=== PATIENT | female | born 1965 | race Two or more races ===

== ENCOUNTER 2023-04-29 15:25 | Emergency (ER) | payer MEDICAID ==
[~2023-04-29] VITALS: Ht 167.6 cm; Wt 81.7 kg
[~2023-04-29 15:25] MED LIST: TIOTCAP IN
[2023-04-29 15:47] VITALS: BP 147/75
[2023-04-29] MEDS ORDERED: DexAMETHasone SOD PHOS 10MG/1ML VIAL INJ IM ONE (17:15)
[2023-04-29] MEDS ORDERED: FUROSEMIDE 40 MG/4 ML VIAL IV ONE (18:00)
[2023-04-29 18:32] LABS: Basophils # (auto) 0 10 ^3/uL (0-0.2); Basophils % (auto) 0.5 % (0.0-2.0); Eosinophils # (auto) 0.1 10 ^3/uL (0-0.8); Eosinophils % (auto) 1.9 % (0.0-7.0); Hematocrit 45.6 % (36.0-46.0); Hemoglobin 15.4 g/dL (12.2-16.2); Lymphocytes # (auto) 1.7 10 ^3/uL (0.4-5.4); Lymphocytes % (auto) 32.6 % (10.0-50.0); Mean Corpuscular Hgb Conc. 33.7 g/dL (32.0-36.0); Mean Corpuscular Volume 98.2 fL (80.0-100.0); Monocytes # (auto) 0.5 10 ^3/uL (0-1.3); Monocytes % (auto) 9.2 % (0.0-12.0); Neutrophils % (auto) 55.8 % (37.0-80.0); Nucleated Red Blood Cells % 0.2 %; Red Blood Cells 4.65 10^6/uL (4.0-5.20); Red Cell Distribution Width 14.3 % (11.8-14.3); White Blood Cell 5.3 10^3/uL (4.4-10.8)
[2023-04-29 19:00] LABS: Albumin 3.6 g/dL (3.4-5.0); Calcium 9.5 mg/dL (8.5-10.1)
[2023-04-29 19:04] LABS: BUN/Creatinine Ratio 30.4 (10.0-20.0); Bilirubin, Total 0.4 mg/dL (0.2-1.0); Total Protein 7.1 g/dL (6.4-8.2)
[2023-04-29] MEDS ORDERED: AZIT-81 PO (19:22)
== END 2023-04-29 19:34 | disposition home or self-care (01) ==
LOC: ER 15:25
DX: J06.9 Acute upper respiratory infection, unspecified (principal); R05.9 Cough, unspecified; J44.9 Chronic obstructive pulmonary disease, unspecified; F17.210 Nicotine dependence, cigarettes, uncomplicated; R06.02 Shortness of breath; Z88.0 Allergy status to penicillin; Z91.02 Food additives allergy status
CPT/HCPCS: 36415; 71045; 80053; 83880; 84484; 85025; 96372; 96374; 99284; J1100; J1940

== ENCOUNTER 2023-06-21 13:55 | Emergency (ER) | payer MEDICAID ==
[~2023-06-21] VITALS: Ht 170.2 cm; Wt 76.8 kg
[~2023-06-21 13:55] MED LIST changes: +AZIT-81 PO
[2023-06-21 15:13] VITALS: BP 126/77; PULSE 103; RESP 18; TEMP 97.8; O2SAT 99
[2023-06-21] MEDS ORDERED: IBUP-1456 PO (16:10)
== END 2023-06-21 16:19 | disposition home or self-care (01) ==
LOC: ER 13:55
DX: S63.614A Unspecified sprain of right ring finger, initial encounter (principal); M79.5 Residual foreign body in soft tissue; J44.9 Chronic obstructive pulmonary disease, unspecified; F17.210 Nicotine dependence, cigarettes, uncomplicated; Z79.1 Long term (current) use of non-steroidal anti-inflammatories (NSAID); Z79.2 Long term (current) use of antibiotics; Z79.899 Other long term (current) drug therapy; Z88.0 Allergy status to penicillin; Z91.018 Allergy to other foods; X50.1XXA Overexertion from prolonged static or awkward postures, initial encounter; Y93.89 Activity, other specified; Y92.89 Other specified places as the place of occurrence of the external cause; Y99.8 Other external cause status
CPT/HCPCS: 29130; 73130

== ENCOUNTER 2023-07-16 12:56 | Emergency (ER) | payer MEDICAID ==
[~2023-07-16] VITALS: Ht 167.6 cm; Wt 78.2 kg
[~2023-07-16 12:56] MED LIST changes: +IBUP-1456 PO
[2023-07-16] MEDS ORDERED: OMEP-335 PO (15:35)
[2023-07-16 15:41] VITALS: BP 120/76; PULSE 102; RESP 18; TEMP 98.2; O2SAT 99
== END 2023-07-16 15:35 | disposition home or self-care (01) ==
LOC: ER 12:56
DX: R10.13 Epigastric pain (principal); J44.9 Chronic obstructive pulmonary disease, unspecified; F17.210 Nicotine dependence, cigarettes, uncomplicated; Z88.0 Allergy status to penicillin; Z91.018 Allergy to other foods; Z79.899 Other long term (current) drug therapy; Z79.1 Long term (current) use of non-steroidal anti-inflammatories (NSAID)

== ENCOUNTER 2024-09-10 16:09 | Emergency (ER) | payer MEDICAID, MEDICARE ==
[~2024-09-10] VITALS: Ht 167.6 cm; Wt 76.3 kg
[~2024-09-10 16:09] MED LIST changes: +AZIT-185 PO; -AZIT-81 PO; +OMEP-335 PO
[2024-09-10 16:24] VITALS: BP 167/99; PULSE 115; RESP 16; O2SAT 98
[2024-09-10] MEDS: KETOROLAC TROMETH 60MG/2ML VIAL IM ONE (16:43)
--- NOTE | 2024-09-10 16:52 | DVH ---
CLINICAL INDICATION: Fall/trauma TECHNIQUE: XY L HAND 3V XRAY Comparison: XY R HAND 3 VIEW XRAY on DOS: 06/21/23 FINDINGS/IMPRESSION: : There is no evidence of acute fracture or dislocation. Soft tissues are unremarkable.
--- NOTE | 2024-09-10 16:57 | DVH ---
CLINICAL INDICATION: Fall/trauma TECHNIQUE: 3 radiographic views of the left wrist were obtained. Comparison: XY R HAND 3 VIEW XRAY on DOS: 06/21/23 FINDINGS/IMPRESSION: There is no evidence of acute fracture or dislocation. The visualized joint space is well maintained. The alignment is anatomical. There is no radiopaque foreign body.
[2024-09-10] MEDS ORDERED: IBUP-1455 PO (17:12)
--- NOTE | 2024-09-10 17:12 | ED.PDOC ---
Musculoskeletal HPI Comments This patient is a pleasant but obese 59-year-old female who arrives to the ED for evaluation of left hand and wrist pain status post ground level fall approximately 1/2 hour prior to arrival. Patient states she had a mechanical trip and fall and landed on her left hand and wrist. Patient denies any head trauma. No blood loss. Vital signs were stable at arrival. Chief Complaint: Upper Extremity Time Seen by MD: 16:15 Primary Care Provider: Michele Reviewed Notes: Nurses Notes Allergies: Coded Allergies: Penicillins (Verified Allergy, Unknown, 11/07/22) [place] (Verified Allergy, Unknown, 04/29/23) Home Meds Active Scripts Ibuprofen Micronized (Ibuprofen) 800 Mg Tab, 800 MG PO Q8HP PRN, #20 TAB Prov:PRERNA HOFFMAN PAC 09/10/24 Omeprazole (Omeprazole) 20 Mg Tab, 20 MG PO BID for 30 Days, #60 TAB 0 Refills Prov:MARLON MYRICK UNIFORM ATTENDANT 07/16/23 Ibuprofen (Ibuprofen) 800 Mg Tab, 1 TAB PO TID, #30 TAB Prov:DANICA OCHOA 06/21/23 Azithromycin (ZITHROMAX TABLET) 250 Mg Tb, 250 MG PO DAILY for 5 Days, #6 TAB 0 Refills Prov:MARLON MYRICK UNIFORM ATTENDANT 04/29/23 Tiotropium [place] Monohydrate (Spiriva Handihaler) 18 Mcg Cap, 18 MCG IN DAILY, #1 CAP Prov:PRERNA HOFFMAN PAC 11/07/22 Information Source: Patient Mode of Arrival: Ambulatory Location: Left Extremity Location: Hand, Wrist Timing: Minutes Prehospital treatment: None Severity: Moderate Able to Move Extremity: No Bear Weight: Fully Pain: Moderate Hand Dominance: Right Mechanism: FOOSH Circumstances: Fall Onset of Symptoms: After Trauma Symptoms: Swelling, Pain DVT Risk Factors: NONE Past Medical History PAST MEDICAL HISTORY: COPD Surgical History: Denies all surgeries PLAYGROUND WORKER History: No Pertinent PLAYGROUND WORKER History Family History Family History: Reviewed,noncontributory to illness, No family hx of Cancer, No family hx of DM, No family hx of Heart arnoldo, No family hx of HTN, No family hx ofKidney arnoldo, No family hx of Liver arnoldo, No family hx of Lung arnoldo, No family hx of Stroke Social History Smoker: Cigarettes Alcohol: Denies ETOH Use Drugs: Denies Drug Use Lives In: Home Constitutional: denies: chills, diaphoresis, fatigue, fever, malaise, sweats, weakness, others EENTM: denies: blurred vision, double vision, ear bleeding, ear discharge, ear drainage, ear pain, ear ringing, eye pain, eye redness, hearing loss, mouth pain, mouth swelling, nasal discharge, nose bleeding, nose congestion, nose pain, photophobia, tearing, throat pain, throat swelling, voice changes, others Respiratory: denies: cough, hemoptysis, orthopnea, SOB at rest, shortness of breath, SOB with excertion, stridor, wheezing, others Cardiovascular: denies: chest pain, dizzy spells, diaphoresis, Dyspnea on e xertion, edema, irregular heart beat, left arm pain, lightheadedness, palpitations, PND, syncope, others Gastrointestinal: denies: abdomen distended, abdominal pain, blood streaked bowels, constipated, diarrhea, dysphagia, difficulty swallowing, hematemesis, melena, nausea, poor appetite, poor fluid intake, rectal bleeding, rectal pain, vomiting, others Genitourinary: denies: abnormal vagina bleeding, burning, dyspareunia, dysuria, flank pain, frequency, hematuria, incontinence, pain, , vagina discharge, urgency, others Neurological: denies: dizziness, fainting, headache, left sided numbness, left sided weakness, numbness, paresthesia, pre-existing deficit, right sided numbness, right sided weakness, seizure, speech problems, tingling, tremors, weakness, others Musculoskeletal: reports: others (Left wrist and left hand pain.); denies: back pain, gout, joint pain, joint swelling, muscle pain, muscle stiffness, neck pain Integumetry: denies: bruises, change in color, change in hair/nails, dryness, laceration, lesions, lumps, rash, wounds, others Allergic/Immunocompromised: denies: Difficulty Healing, Frequent Infections, Hives, Itching, others Hematologic/Lymphatic: denies: anemia, blood clots, easy bleeding, easy bruising, swollen glands, others Endocrine: denies: excessive hunger, excessive sweating, excessive thirst, excessive urination, flushing, intolerance to cold, intolerance to heat, unexplained weight gain, unexplained weight loss, others Psychiatric: denies: anxiety, bipolar disorder, depression, hopeless, panic disorder, schizophrenia, sleepless, suicidal, others Physical Exam General Appearance: Moderate Distress (Due to left hand and wrist pain), Obese HEENT: Normal ENT Inspection, Pharynx Normal, TMs Normal Neck: Full Range of Motion, Non-Tender, Normal, Normal Inspection Respiratory: Chest Non-Tender, Lungs Clear, No Accessory Muscle Use, No Respiratory Distress, Normal Breath Sounds Cardiovascular: No Edema, No JVD, No Murmur, No Gallop, Normal Peripheral Pulses, Regular Rate/Rhythm Breast Exam: Deferred Gastrointestinal: No Organomegaly, Non Tender, No Pulsatile Mass, Normal Bowel Sounds, Soft Genitalia: Deferred Pelvic: Deferred Rectal: Deferred Extremities: Other (Diffuse left wrist and left hand pain throughout. No definitive signs of trauma. Possible mild edema. No ecchymosis or erythema. Significant reduced range of motion. Distal neurovascularly intact.) Neurologic: Alert, technical support consultant II-XII nml as Tested, No Motor Deficits, Normal Affect, Normal Mood, No Sensory Deficits Cerebellar Function: Normal Reflexes: Normal Skin: Dry, Normal Color, Warm Lymphatic: No Adenopathy Was a procedure done? Was a procedure done?: No Differential Diagnosis EXT Differential Diagnosis: Fracture, Sprain, Contusion, Strain X-Ray, Labs, Meds, VS Vital Signs Date Time Temp Pulse Resp B/P (MAP) Pulse Ox O2 Delivery O2 Flow Rate FiO2 09/10/24 16:24 98.1 115 16 167/99 (121) 98 Current Medications Medications (Trade) Dose Ordered Sig/Mati Route Start Time Stop Time Status Last Admin Ketorolac Tromethamine (Toradol Injection) 30 mg ONCE ONCE IM 09/10/24 16:30 09/10/24 16:31 DC 09/10/24 16:43 X-Ray, Labs, Meds, VS Comment All studies performed the ED were evaluated by me personally. Imaging studies were unremarkable for any acute fractures of the wrist or hand. Radiology concurred with my assessment. Patient seems to sustained a hand and wrist contusion due to the fall. Advised utilizing the Gera wrap as long as it aids in the healing process. I spent 10 minutes discussing smoking cessation with the patient. Advised utilizing nicotine aversion tools as well as possible homeopathic therapies to aid in the process. Time of 1ST Reevaluation: 17:10 Reevaluation 1ST: Improved Consultation: PCP Patient Education/Counseling: Diagnosis, Treatment Family Education/Counseling: Diagnosis, Treatment Departure 1 Departure Time of Disposition: 17:10 Impression: Primary Impression: Hand contusion Additional Impression: Left wrist sprain Disposition: HOME / SELF CARE / HOMELESS Condition: Stable Additional Instructions: Advised patient utilize medication as needed for symptomatic relief as well as ice therapy. Patient should utilize the Gera wrap as long as it is aiding in the healing process. e-Prescriptions Ibuprofen Micronized (Ibuprofen) 800 Mg Tab 800 MG PO Q8HP PRN, #20 TAB Prov: PRERNA HOFFMAN PAC 09/10/24 Discharged With: Self, Friend Critical Care Note Critical Care Time?: No Stability Stability form required: No Heart Score Heart Score: Heart Score Response (Comments) Value History N/A 0 EKG N/A 0 Age N/A 0 Risk Factors N/A 0 Troponin N/A 0 Total 0 PRERNA HOFFMAN PAC Sep 10, 2024 17:12
== END 2024-09-10 19:03 | disposition home or self-care (01) ==
LOC: ER 16:09
DX: S63.502A Unspecified sprain of left wrist, initial encounter (principal); J44.9 Chronic obstructive pulmonary disease, unspecified; F17.210 Nicotine dependence, cigarettes, uncomplicated; Z79.1 Long term (current) use of non-steroidal anti-inflammatories (NSAID); Z88.0 Allergy status to penicillin; W01.0XXA Fall on same level from slipping, tripping and stumbling without subsequent striking against object, initial encounter; Y93.89 Activity, other specified; Y92.89 Other specified places as the place of occurrence of the external cause; Y99.8 Other external cause status
CPT/HCPCS: 73110; 73130; 96372; 99284; J1885

== ENCOUNTER → 2024-11-12 | Outpatient (CLI) | payer MEDICARE, MEDICAID ==
[~2024-11-12] MED LIST changes: +IBUP-1455 PO
[2024-11-12 11:57] LABS: Urine Bacteria None Seen /hpf (None Seen)
[2024-11-12 12:04] LABS: Basophils # (auto) 0 10 ^3/uL (0-0.2); Basophils % (auto) 0.5 % (0.0-2.0); Eosinophils # (auto) 0.1 10 ^3/uL (0-0.8); Eosinophils % (auto) 1.6 % (0.0-7.0); Hematocrit 52.1 % (36.0-46.0); Hemoglobin 17.2 g/dL (12.2-16.2); Lymphocytes # (auto) 1.8 10 ^3/uL (0.4-5.4); Lymphocytes % (auto) 35.3 % (10.0-50.0); Mean Corpuscular Hemoglobin 31.8 pg (28.0-32.0); Mean Corpuscular Hgb Conc. 33.1 g/dL (32.0-36.0); Mean Corpuscular Volume 96.2 fL (80.0-100.0); Monocytes # (auto) 0.3 10 ^3/uL (0-1.3); Monocytes % (auto) 5.9 % (0.0-12.0); Neutrophils # (auto) 2.9 10 ^3/uL (1.6-8.6); Neutrophils % (auto) 56.7 % (37.0-80.0); Nucleated Red Blood Cells % 0.5 %; Platelet Count (auto) 174 10^3/uL (140-450); Red Blood Cells 5.42 10^6/uL (4.0-5.20); Red Cell Distribution Width 13.6 % (11.8-14.3); White Blood Cell 5.2 10^3/uL (4.4-10.8)
[2024-11-12 12:14] LABS: Urine Blood TRACE /uL (Negative); Urine Clarity Turbid (Clear); Urine Color Light-Yellow (Yellow); Urine Protein, UAD TRACE (Negative); Urine Squamous Epithelial Cell MOD /hpf (<5); Urine Urobilinogen Normal (Negative); Urine WBC 213 /hpf (0 - 5); Urine pH 5.5 (5.0-9.0)
[2024-11-12 12:42] LABS: Alanine Aminotransferase 31 U/L (7-40); Albumin 4.8 g/dL (3.2-4.8); Alkaline Phosphatase 115 U/L (46-116); Anion Gap 9 (5-15); Aspartate Aminotransferase 29 U/L (13-40); BUN/Creatinine Ratio 12.6 (10.0-20.0); Bilirubin, Total 0.6 mg/dL (0.2-1.0); Blood Urea Nitrogen 14 mg/dL (9-23); Calcium 10.7 mg/dL (8.7-10.4); Carbon Dioxide 28 mmol/L (20-31); Chloride 101 mmol/L (98-107); Cholesterol 163 mg/dL (< 200); Glucose 185 mg/dL (74-106); HDL Cholesterol 56 mg/dL (40-59); LDL Cholesterol 88 mg/dL (< 100); Potassium 4.5 mmol/L (3.5-5.1); Sodium 138 mmol/L (136-145); Total Protein 7.7 g/dL (5.7-8.2); Triglycerides 140 mg/dL (< 150)
== END | disposition home or self-care (01) ==
LOC: LAB 11:38
PROVIDERS: ATTEND Nurse Practitioner
DX: I10 Essential (primary) hypertension (principal); E11.9 Type 2 diabetes mellitus without complications; E78.5 Hyperlipidemia, unspecified
CPT/HCPCS: 36415; 80053; 80061; 81001; 83036; 84443; 85025